=== PATIENT | male | born 1985 | race Caucasian/White ===

== ENCOUNTER 2017-05-25 09:42 | Emergency (ER) | payer MEDICAID, OTHER ==
[~2017-05-25] VITALS: Ht 177.8 cm; Wt 65.8 kg
[2017-05-25] MEDS ORDERED: DEXAMETHASONE SOD PHOSPHATE 10 MG/ML VIAL ONE (10:06)
[2017-05-25] MEDS ORDERED: HYDROMORPHONE 1 MG/1 ML DISP.SYRIN ONE (10:08)
[2017-05-25] MEDS ORDERED: ONDANSETRON 4 MG TAB.RAPDIS ONE (10:08)
--- NOTE | 2017-05-25 10:08 | NUR ---
PT TAKEN TO CT SCAN
[2017-05-25] MEDS ORDERED: DEXAMETHASONE SOD PHOSPHATE 4 MG/ML VIAL IM ONE (10:30)
[2017-05-25] MEDS ORDERED: HYDROMORPHONE 1 MG/1 ML DISP.SYRIN IM ONE (10:30)
[2017-05-25] MEDS ORDERED: ONDANSETRON 4 MG TAB.RAPDIS PO ONE (10:30)
[2017-05-25 10:58] LABS: APPEARANCE,URINE Clear (CLEAR); BILIRUBIN,URINE SMALL (NEGATIVE); BLOOD, URINE Negative Ery/uL (NEGATIVE); KETONES,URINE Trace (NEGATIVE); LEUKOCYTE ESTERASE ,URINE Negative (NEGATIVE); NITRITE, URINE Negative (NEGATIVE); PROTEIN,URINE Negative (NEGATIVE); UGLUCOSE Negative (NEGATIVE); UROBILINOGEN,URINE 0.2 EU/dL (0.2)
[2017-05-25 11:01] LABS: COLOR,URINE Dark Yellow (YELLOW)
[2017-05-25 11:08] LABS: RBC,URINE 0-3 /HPF (0-2); WBC,URINE 0-3 /HPF (0-3)
[2017-05-25 11:09] LABS: BACTERIA,URINE None seen /HPF (None Seen); SQUAMOUS EPITHELIAL CELL,UR Few /HPF (None Seen)
--- NOTE | 2017-05-25 11:10 | NUR ---
TEXTED DR. BOSS FOR MRI APPROVAL.
--- NOTE | 2017-05-25 11:12 | NUR ---
MRI APPROVED.TECH IS NOTIFIED.
--- NOTE | 2017-05-25 11:16 | NUR ---
LOWER BACK PAIN RADIATES TO RIGHT LEG SINCE YESTERDAY.
--- NOTE | 2017-05-25 11:26 | NUR ---
PT SIGNED MRI QUESTIONNAIRE . TAKEN TO MRI
--- NOTE | 2017-05-25 12:59 | NUR ---
MESSAGE LEFT FOR DR DIAZ.
--- NOTE | 2017-05-25 13:27 | NUR ---
Patient discharged to home in stable condition. Written and verbal after care instructions given. Patient verbalizes understanding of instruction.
[2017-05-25 13:28] VITALS: BP 110/83
== END 2017-05-25 13:36 | disposition home or self-care (01) ==
LOC: ER 09:43
DX: M51.26 Other intervertebral disc displacement, lumbar region (principal); F17.200 Nicotine dependence, unspecified, uncomplicated; F10.10 Alcohol abuse, uncomplicated; Z88.6 Allergy status to analgesic agent; X50.0XXA Overexertion from strenuous movement or load, initial encounter; Y93.89 Activity, other specified; Y92.89 Other specified places as the place of occurrence of the external cause; Y99.8 Other external cause status
CPT/HCPCS: 72131; 72148; 81001; 96372 ×2; 99285; A4606; J1100; J1170; Q0162; Z7610; 81000-TC

== ENCOUNTER 2017-12-26 22:16 | Emergency (ER) | payer OTHER ==
[~2017-12-26] VITALS: Ht 180.3 cm; Wt 70.8 kg
[2017-12-26 22:17] VITALS: BP 119/72
[2017-12-26] MEDS ORDERED: ACETAMINOPHEN 325 MG TABLET PO ONE (23:30)
[2017-12-27] MEDS ORDERED: ACETAMINOPHEN ES 500 MG TABLET ONE (01:31)
== END 2017-12-27 01:38 | disposition home or self-care (01) ==
LOC: ER 22:18
DX: S92.335A Nondisplaced fracture of third metatarsal bone, left foot, initial encounter for closed fracture (principal); G89.29 Other chronic pain; M54.5 Low back pain; F17.200 Nicotine dependence, unspecified, uncomplicated; Z88.6 Allergy status to analgesic agent; W18.39XA Other fall on same level, initial encounter; Y93.01 Activity, walking, marching and hiking; Y92.89 Other specified places as the place of occurrence of the external cause; Y99.8 Other external cause status
CPT/HCPCS: 29515; 73630; 99284; A4606; Z7610